=== PATIENT | male | born 1970 | race Caucasian/White ===

== ENCOUNTER 2024-04-20 21:09 | Inpatient (IN) | payer OTHER, SELFPAY ==
[2024-04-20] VITALS (7 sets, daily range): BP systolic 109–146; BP diastolic 82–101; BMI 30.5
[2024-04-20 17:54] LABS: % Basophils 0.5 % (0-2); % Eosinophils 1.3 % (0-6); % Immature Granulocytes 0.3 % (0-0.5); % Lymphocytes 21.3 % (20.5-51.1); % Monocytes 9.2 % (1.7-9.3); % Neutrophils 67.4 % (42.2-75.2); Absolute Eosinophils 0.1 10^3/uL (0-0.7); Absolute Lymphocytes 1.6 10^3/uL (1.2-3.4); Absolute Monocytes 0.7 10^3/uL (0.1-0.6); Hematocrit 40.2 % (39.0-52.0); Hemoglobin 14.5 g/dL (13.0-18.0); Mean Corp Hgb Conc. 36.1 g/dL (33.0-37.0); Mean Corpuscular Hgb 34.4 pg (27.0-31.0); Mean Corpuscular Volume 95.5 fL (80.0-94.0); Mean Platelet Volume 10.2 fL (7.4-10.4); Nucleated Red Blood Cells % 0 % (-); Platelet Count 199 10^3/uL (130-400); Red Blood Cell Count 4.21 10^6/uL (4.70-6.10); Red Cell Dist. Width 13.1 % (11.5-14.5); White Blood Cell Count 7.4 10^3/uL (4.8-10.8)
[2024-04-20 18:09] LABS: ALT (SGPT) 80 U/L (0-50); AST (SGOT) 98 U/L (17-59); Albumin 4.4 g/dl (3.5-5.0); Alkaline Phosphatase 71 U/L (38-126); Blood Urea Nitrogen 19 mg/dl (9-20); Calcium 9.6 mg/dl (8.4-10.2); Carbon Dioxide 21 mmol/L (22-30); Chloride 104 mmol/L (98-107); Glucose 121 mg/dl (70-99); Potassium 3.9 mmol/L (3.5-5.1); Sodium 137 mmol/L (135-145); Total Bilirubin 3.4 mg/dl (0.2-1.3); Total Protein 6.8 g/dl (6.3-8.2); eGFR > 60.00
[2024-04-20 18:13] LABS: NT-proBNP 4210 pg/ml
--- NOTE | 2024-04-20 18:13 | ED.GENMED ---
History of Present Illness
General
Chief Complaint: Breathing Problem
Source: patient
Exam Limitations: none
Time Seen by Provider: 04/20/24 17:57
History of Present Illness
History of Present Illness:
This is a 53 year old male that comes in with c/o irregular heart rate. States that 3 weeks ago he started with some ankle and feet swelling. States that this did not go away. Then he started with SOB about 1.5 weeks ago. States that this went away
and then came back. States that he went to see the PCP today as he felt he couldn't wait till next Friday and he was found to have irregular heart beat. States that he was sent to the ER. Denies any fever, chills, chest pain, abd pain, nausea,
vomiting, diarrhea, headache, dizziness, urinary burning.
Past History
Past History
ED Past Medical History: HTN and Hypercholesterolemia
ED Past Surgical History: Orthopedic (Right arm surgery)
Social History
Tobacco: Non-smoker
Alcohol: Other (5-6 days a week Wine or Vodka 3 glasses)
Personal: Other ()
Living: alone
Employment: Employed
Review of Systems
Review of Systems
All Other Systems: ROS reviewed and negative except as documented in HPI and ROS
Constitutional: Reports no symptoms; Denies fever or chills
EENT: Reports no symptoms
Respiratory: Reports trouble breathing; Denies cough
Cardiac: Denies chest pain
ABD/GI: Reports no symptoms; Denies abdominal pain, nausea, vomiting or diarrhea
: Reports no symptoms; Denies dysuria, frequency or urgency
Musculoskeletal: Reports no symptoms
Skin: Reports no symptoms
Neurological: Reports no symptoms; Denies dizzy or headache
Psychiatric: Reports no symptoms
Phy Exam
General Physical Exam
General Presentation: no apparent distress
General age: appears stated age
General Skin: warm and dry
General Habitus: normal
General Mental: alert
General Hydration: appears well hydrated
ENT Exam
ENT Exam: TM's normal, pharynx normal and neck supple
Eye Exam
Eye Exam: EOMI
Cardiovascular Exam
Cardiovascular Exam: normal peripheral pulses and irregularly irregular
Pulmonary Exam
Pulmonary Exam: lungs clear, no respiratory distress, no rales, chest non tender, no crackles, no rhonchi, no wheezing and no cough
Gastrointestinal Exam
Gastrointestinal Exam: normal bowel sounds, non tender, soft, no organomegaly, no pulsatile mass and non distended
Musculoskeletal Exam
Musculoskeletal Exam: full ROM and edema (+2 pitting edema of ankles and lower legs)
Skin Exam
Skin Exam: normal color, warm/dry, no rash and no petechia
Psychiatric Exam
Psychiatric Exam: normal mood/affect
Scores
[id number] Score for Afib Stroke Risk
Age in Years (65=0, 65-74=1, >/=75=2): <65
Sex (Female=+1): Male
Congestive Heart Failure History (Yes=+1): No
Hypertension History (Yes=+1): Yes
Stroke/TIA/Thromboembolism History (Yes=+2): No
Vascular Disease History (Yes=+1): No
Diabetes Mellitus (Yes=+1): No
Score: 1
Anticoagulation Recommendations: Consider anticoagulation (as validated in nonvalvular fib)
Heart Failure Risk
Heart Failure Risk Score: Yes
History of Stroke or TIA: No
History of intubation for respiratory distress: No
Heart rate on ED arrival >/= 110: No
SaO2 <90% on arrival on room air: No
HR >/=110 during 3min walk test (or too ill to perform test): No
ECG has acute ischemic changes: No
Urea >/=12mmol/L (BUN 33.6mg/dL): No
Serum CO2>/=35mmol/L: No
Troponin I or T elevated to KS Level (0.4mg/dL): No
NT-proBNP >/=5,000ng/L (5,000pg/ml): No
HF Risk Score: 0
Admission Status: LOW RISK 2.8% Consider discharge to home with f/u visit to PCP/Mri Manager
Course
Orders/Labs/Results
Orders:
Orders
04/20/24 Dinner
Cholesterol Lowering
At Your Request: Full Participation
Cholesterol Lowering: Sodium, 2 Gram
04/20/24 17:38
EKG [Electrocardiogram (*1)] Urgent
Reason for Study: Shortness of Breath
EKG- Treatment ONCE
04/20/24 17:42
BNP [NT-proBNP] Urgent
CBC/With Diff [Complete Blood Count/With Diff] Urgent
CMP [Comprehensive Metabolic Panel] Urgent
TSH Reflex To Free T4 Routine
04/20/24 18:07
0.9% Sodium Chloride 1000 ml [Nss] 1,000 ml IV BOLUS
Diltiazem 125 mg/125 ml Nss [Cardizem] 125 mg in 125 ml IV NOW
Initial dose in mg/hr, then titrate:: 5
Titrate to keep:: Heart rate 80-100 bpm
Titrate by mg/hr:: 5 mg/hr
Frequency of titrations (minutes):: 15
Maximum dose in mg/hr:: 15
Diltiazem HCl [Cardizem] 5 mg IV NOW STA
04/20/24 18:08
CR Chest - 2 Views Urgent
Comment:
Reason For Exam: SOB
04/20/24 18:16
Apixaban [Eliquis] 5 mg PO NOW STA
04/20/24 18:25
Troponin I Urgent
04/20/24 19:59
Admit/Transfer Patient As Directed
Co-Sign Provider:
Level of Care: Inpatient admission
Assign to:: IVU
Physician / Group: jessica
Diagnosis: afib with rvr
Reason for Hospitalization: afib with rvr
Expected length of stay greater than two midnights?: Yes
ELOS- Estimated Length of Stay in days: 2
I certify the patient meets the requirements for IP care: Yes
04/20/24 20:00
Code Status As Directed
Resuscitation Status: Full Code
04/20/24 21:00
Flush (0.9% Sodium Chloride) [Flush (Nss)] See Dose Instructions IV PER PROTOCOL
04/20/24 21:37
Echo 2D MMode Color/Doppler Routine
Reason for Study: heart failure
VTE Contraindication Routine
VTE Mechanical Device Contraindication: Medical Contraindication
Pharmocologic Contraindication: Medical Contraindication
Activity As Directed
Activity Level: As Tolerated
Intake/ Output As Directed
Frequency: q12h
Patient Education As Directed
Type: CHF folder
Comment: give on admission. Document in Interdisciplinary Education record
Sleep Apnea Assessment by RN As Directed
Comment:
Physician Instructions:
Vital Signs As Directed
Frequency: Other
Additional Instructions:: Q12 or per unit guidelines if more frequent.
Weight As Directed
Frequency: Daily
Type of Scale: Standing Scale
Comment: Daily morning weight. If unable to stand, use balanced bed scale.
Weight As Directed
Frequency: Once
Type of Scale: Standing Scale
Comment: Upon Admission. If unable to stand, use balanced bed scale.
Pulse Ox/cont/shift [RESP] Routine
Quantity: 1
Special Instructions: Daily pulse oximetry at rest. If greater than 92% at rest also obtain pulse oximetry
while ambulating as tolerated.
04/21/24 Breakfast
NPO
Allow oral meds: Yes
Allow clear liquids: Sips of Clears
Complete Blood Count/With Diff IN AM
Comprehensive Metabolic Panel IN AM
04/21/24 08:00
Apixaban [Eliquis] 5 mg PO BID
Furosemide [Lasix] 40 mg IV DAILY
Ramipril [Altace] 5 mg PO DAILY
04/23/24 11:00
DC Protocol for Telemetry ONCE
Abnormal Lab Results
04/20/24
17:42
RBC 4.21 L 10^6/uL
(4.70-6.10)
MCV 95.5 H fL
(80.0-94.0)
MCH 34.4 H pg
(27.0-31.0)
Absolute Monos (auto) 0.7 H 10^3/uL
(0.1-0.6)
Carbon Dioxide 21 L mmol/L
(22-30)
Glucose 121 H mg/dl
(70-99)
Total Bilirubin 3.4 H mg/dl
(0.2-1.3)
AST 98 H U/L
(17-59)
ALT 80 H U/L
(0-50)
04/20/24 17:42
04/20/24 17:42
Anemia, Glucose nonfasting, Total [place] elevation. AST/ALT elevation. Pro-BNP 4210, Troponin 0.021. TSH 2.14
Vital Signs
Initial and Last Documented VS:
Initial Vital Signs
Temp Pulse Resp BP Pulse Ox
98.3 F 70 20 146/101 98
04/20/24 17:34 04/20/24 17:34 04/20/24 17:34 04/20/24 17:34 04/20/24 17:34
Last Documented Vital Signs
Temp Pulse Resp BP Pulse Ox
98.2 F 91 16 120/82 97
04/20/24 23:33 04/20/24 23:33 04/20/24 23:33 04/20/24 23:33 04/20/24 23:33
MDM/Problems Addressed
Differential Diagnosis Includes:
Atrial fib,
MDM/Problems Addressed:
This is a 53 year old male that went to see his PCP today for swelling in the lower legs and SOB. States that the swelling started 3 weeks ago and the SOB 1.5 weeks ago. He was found to be in atrial fib on his ECG and sent to the ER.
Will get labs, ECG and start IV fluids and Cardizem. Will admit patient. ChadVasc score is 1 so will start Eliquis.
Chronic conditions affecting care:
NA
Acute Exacerbation and/or Progression of Chronic Illness:
NA
*Radiology
Radiology exam reviewed: preliminary read by ED provider (Chest- Negative for active disease. ) and radiology read reviewed (Chest-No acute cardiopulmonary process)
*Pulse Oximetry
Patient hypoxic: no
*EKG
Interpreted by ED Provider?: Yes
Heart Rate: 150
Rate: tachycardiac
Rhythm: a-fib
Zurich: normal axis
QRS Pattern: normal QRS
Ischemia: non-specific ST changes (I, V4, V5, )
*Him Analyst Interpretation
Rate: tachycardiac
Interpretation: abnormal
Heart Rate: 164
Rhythm: a-fib
*Critical Care Note
Total Time (30-74mins, 75-104mins- exclusive of procedures): Not Applicable
ED Attending Note
-
Portions of this chart may have been created with voice recognition software.� Occasional wrong word or��sound alike� substitutions may have occurred due to the inherent limitations of voice recognition software.
Discharge Plan
Departure
Patient Disposition: Admit
Date of Disposition: 04/20/24
Time of Disposition: 19:14
Admit to: Telemetry
Presentation/result/management discussed w/ accepting MD/DO: Hospitalist
Patient with high blood pressure during this ER visit?: No
Condition: Good
Covid-19: Not Applicable
Discharge Problem:
New onset a-fib
Interventions
Interventions:
*Risk Screen - Suicide Last Done: 04/20/24 21:40
*General Assessment Last Done: 04/20/24 17:34
*Neglect/Abuse Screening Last Done: 04/20/24 17:34
ED- Fall Risk Assessment Last Done: 04/20/24 17:50
*ED COVID-19 Vaccine History Last Done: 04/20/24 21:41
*Nursing Disposition Last Done: 04/20/24 21:41
ED- Cardiac Assessment Last Done: 04/20/24 17:50
ED- Pulmonary Assessment Last Done: 04/20/24 17:50
Discharge Date and Time
Discharge Date/Time: 04/20/24 21:42
[2024-04-20] MEDS: NSS 1000 IV (18:18)
[2024-04-20] MEDS: CARDIZEM 125 IV (18:18)
[2024-04-20] MEDS: CARDIZEM 5 MG IV (18:18)
[2024-04-20] MEDS: ELIQUIS 5 MG PO (18:27)
[2024-04-20 18:55] LABS: Troponin I 0.021 ng/ml
--- NOTE | 2024-04-20 20:03 | HPS.HSE ---
Family Physician
-
Family Physician: Nilo Sagastume
Chief Complaint
-
shortness of breath
History of Present Illness
53-year-old male past medical history of hypertension, hypercholesteremia, presenting with irregular heart rate. he noticed that he was having shortness of breath particularly with exertion over the past few weeks and increased lower extremity
edema. He has also gained 20 pounds in the past month. He went to see his primary care physician today and was found to have irregular heartbeat and sent to the emergency room. He denies any palpitations, dizziness, syncope, fevers or chills,
chest pain, abdominal pain, nausea vomiting, diarrhea, headache, dizziness or urinary symptoms.
He drinks 3 drinks of wine 5 times per week. He denies smoking.
His father had heart attack at age of 44.
Medical History
Past Medical History
Past Medical History: Reports Other (hypertension, hypercholesteremia,)
Past Surgical History: Reports None
Social History
Tobacco: Non-smoker
Alcohol: Daily
Drug: None
Family History
Family History: Early CAD
Allergies / Home Medications
Allergies reflects when Allergies were last updated in [facility].
Home Medications with original date entered in [facility]
Allergy/Medication List:
Allergies
Allergy/AdvReac Type Severity Reaction Status Date / Time
ciprofloxacin [From Cipro] Allergy Tongue Verified 04/20/24 17:37
Swelling
ciprofloxacin HCl Allergy Tongue Verified 04/20/24 17:37
[From Cipro] Swelling
Penicillins Allergy Unknown Verified 04/20/24 17:37
Home Medications
aspirin 81 mg tablet,delayed release 81 mg PO DAILY 04/20/24
ramipril 5 mg capsule 5 mg PO DAILY 04/20/24
simvastatin 40 mg tablet 40 mg PO DAILY 04/20/24
Review of Systems
-
History Source: Patient
A 12 point ROS was completed and negative except as noted: Yes
Constitutional: Reports No Symptoms
EENT: Reports No Symptoms
Respiratory: Reports See HPI
Cardiac: Reports See HPI
Abdomen/GI: Reports No Symptoms
: Reports No Symptoms
Musculoskeletal: Reports No Symptoms
Skin: Reports No Symptoms
Neurological: Reports No Symptoms
Endocrine: Reports No Symptoms
Hematologic/Lymphatic: Reports No Symptoms
Psych: Reports No Symptoms
Physical Exam
Vital Signs
Vital Signs
Temp Pulse Resp BP Pulse Ox
98.3 F 127 23 117/82 95
04/20/24 17:34 04/20/24 19:38 04/20/24 19:38 04/20/24 19:38 04/20/24 19:38
Physical Exam
General: Well Developed, Well Nourished and No Apparent Distress
HEENT: NormoCephalic, Moist mucous membranes and Atraumatic
Respiratory: Clear
Cardiac: S1/S2, Irregular Rhythm, Tachycardia and Peripheral Edema; No Murmur or Rub
GI: Soft, Non Tender, Non Distended and Normal Bowel Sounds; No Organomegaly
Rectal: Deferred by Provider
Musculoskeletal: No Clubbing, No Cyanosis and No Edema
Skin: No Rash
Neuro: Nonfocal/grossly intact
Laboratory Results
-
04/20/24 17:42
04/20/24 17:42
Laboratory Results
Total Bilirubin 3.4 mg/dl (0.2-1.3) H 04/20/24 17:42
AST 98 U/L (17-59) H 04/20/24 17:42
ALT 80 U/L (0-50) H 04/20/24 17:42
Alkaline Phosphatase 71 U/L (38-126) 04/20/24 17:42
Troponin I 0.021 ng/ml 04/20/24 18:25
Data Reviewed
-
Lab Data: Labs Reviewed by me
Old Records: Reviewed
Impression/Plan
-
IMPRESSION:
PLAN:
# New onset atrial fibrillation with RVR
-IV fluids given
-Cardizem drip started
-Eliquis started, discontinue aspirin
-Check TSH
-Cardiology consulted
-Assess for sleep apnea
-N.p.o. past midnight in case cardioversion necessary
# Tachycardia induced CHF exacerbation
-Cardiac BNP of 4000
-Chest x-ray shows no overt pulmonary vascular congestion
-Check I's and O's, daily weights
-Will give dose of 40 IV Lasix daily
-Check echo
# Transaminitis secondary to hepatic venous congestion/alcohol use
-Continue to monitor
-Hold statin
# Significant weekly alcohol use
-Monitor for withdrawal
Essential hypertension
-Continue ramipril
Hypercholesterolemia
-Continue statin
Full code
DVT prophylaxis�Eliquis
Cardiac diet, n.p.o. past midnight
[2024-04-20 22:55] LABS: TSH Reflex To Free T4 2.14 uIU/ml (0.47-4.68)
[2024-04-21] VITALS (8 sets, daily range): BP systolic 90–128; BP diastolic 61–94; BMI 29.4
--- NOTE | 2024-04-21 00:37 | PTCARENOTE ---
Pt admitted to IVU ~2129, pt belongings w/ pt. Oriented pt to unit. HR afib w/ PVCs 80s-100s. Cardizem infusing at 15mg/hr. Hand tremors noted - pt states it has been happening on and off for 'a while' and 'could also be from nerves'. Afib booklet
given to pt, informed of NPO status starting 0000. Pt states SOB is better than when initially arriving to ED. Informed to notify RN if any worsening SOB or lightheadedness/dizziness - call munguia within reach.
[2024-04-21] MEDS: CARDIZEM 125 IV ×2 (03:03→20:39)
[2024-04-21 03:49] LABS: % Basophils 0.5 % (0-2); % Eosinophils 2.2 % (0-6); % Immature Granulocytes 0.3 % (0-0.5); % Monocytes 8.8 % (1.7-9.3); % Neutrophils 57.2 % (42.2-75.2); Absolute Eosinophils 0.1 10^3/uL (0-0.7); Absolute Lymphocytes 1.8 10^3/uL (1.2-3.4); Absolute Monocytes 0.5 10^3/uL (0.1-0.6); Absolute Neutrophils 3.4 10^3/uL (1.4-6.5); Hematocrit 38.6 % (39.0-52.0); Hemoglobin 13.7 g/dL (13.0-18.0); Mean Corp Hgb Conc. 35.5 g/dL (33.0-37.0); Mean Corpuscular Hgb 34.6 pg (27.0-31.0); Mean Corpuscular Volume 97.5 fL (80.0-94.0); Mean Platelet Volume 10.6 fL (7.4-10.4); Nucleated Red Blood Cells % 0 % (-); Platelet Count 165 10^3/uL (130-400); Red Blood Cell Count 3.96 10^6/uL (4.70-6.10); Red Cell Dist. Width 12.9 % (11.5-14.5); White Blood Cell Count 5.9 10^3/uL (4.8-10.8)
[2024-04-21 04:09] LABS: ALT (SGPT) 70 U/L (0-50); AST (SGOT) 78 U/L (17-59); Albumin 3.9 g/dl (3.5-5.0); Alkaline Phosphatase 71 U/L (38-126); Blood Urea Nitrogen 20 mg/dl (9-20); Calcium 9.1 mg/dl (8.4-10.2); Carbon Dioxide 21 mmol/L (22-30); Chloride 103 mmol/L (98-107); Estimated Creatinine Clearance 85 ml/min; Glucose 155 mg/dl (70-99); Potassium 3.9 mmol/L (3.5-5.1); Sodium 135 mmol/L (135-145); Total Bilirubin 3.6 mg/dl (0.2-1.3); Total Protein 6.3 g/dl (6.3-8.2); eGFR > 60.00
--- NOTE | 2024-04-21 06:36 | W.PN.HOSP.TC ---
Today's Communication/Plan
-
NPO pending cardiology evaluation
IV Cardizem gtt
IV Lasix
Echo
Mg supplement
Assessment / Plan
Assessment / Plan
Physical Exam
General: Well Developed, Well Nourished and No Apparent Distress
HEENT: Normocephalic, Moist mucous membranes and Atraumatic
Respiratory: Clear
Cardiac: S1/S2, Irregular Rhythm,
GI: Soft, Non Tender, Non Distended and Normal Bowel Sounds; No Organomegaly
Rectal: No rectal bleeding
Musculoskeletal: No Clubbing, No Cyanosis and No Edema
Skin: No Rash
Neuro: Nonfocal/grossly intact
Psych: calm.
# New onset atrial fibrillation with RVR
-IV fluids given
-Cardizem drip started
-Eliquis was , discontinued aspirin. Low [id number] 1 for HTN
- Normal TSH
-Assess for sleep apnea as OP
-N.p.o. past midnight in case cardioversion necessary
Appreciate cardiology input
# Tachycardia induced CHF exacerbation
-Cardiac BNP of 4000
-Chest x-ray shows no overt pulmonary vascular congestion
-Check I's and O's, daily weights
-40 IV Lasix daily
-Check echo
# Hypomagnesemia
Replace
# Transaminitis secondary to hepatic venous congestion/alcohol use
Enzymes are coming down.
- No abdominal pain. No N/V.
-Hold statin
# Significant weekly alcohol use
-Monitor for withdrawal, no signs now
#Essential hypertension
AM BP 126/79
-Continue ramipril
#Hypercholesterolemia
-
Full code
DVT prophylaxis�Eliquis
Cardiac diet, n.p.o. past midnight
Total time spent to see the patient on the floor, examine the patient, review data and lab results, discuss treatment plan with patient, nursing staff around 55 minutes
Anticipated Discharge: 24 - 48 hours
Subjective/Interval History
-
Date of Service: April 21, 2024
No chest pain
NO SOB
Objective Data
-
Labs:
Laboratory Results
04/21/24
03:08
WBC 5.9
Hgb 13.7
Hct 38.6 L
Plt Count 165
Sodium 135
Potassium 3.9
Chloride 103
Carbon Dioxide 21 L
BUN 20
Creatinine 1.2
Glucose 155 H
Calcium 9.1
Total Bilirubin 3.6 H
AST 78 H
ALT 70 H
Alkaline Phosphatase 71
Vital Signs:
Vital Signs
Temp Pulse Resp BP Pulse Ox
98 F 85 18 114/77 97
04/21/24 02:55 04/21/24 03:00 04/21/24 02:55 04/21/24 02:55 04/21/24 02:55
I&O
04/19/24 04/20/24 04/21/24
06:59 06:59 06:59
Intake Total 480 / 480
Balance 480 / 480
[2024-04-21 06:48] LABS: Magnesium 1.7 mg/dl (1.6-2.3)
[2024-04-21] MEDS: ELIQUIS 5 MG PO (08:41)
[2024-04-21] MEDS: LASIX 40 MG IV ×2 (08:42→15:23)
[2024-04-21] MEDS: ALTACE 5 MG PO (08:42)
--- NOTE | 2024-04-21 08:58 | CON.CAR ---
Addendum entered and electronically signed by Bakari Zhang MD 04/21/24 12:45:
I saw and examined the patient.
The ADJUSTER AND INSPECTOR's note was reviewed and I agree with the note.
Comment: 53 y/o male with hypertension and dyslipidemia who is here for evaluation of one month of LE edema, 20 lb weight gain, and several weeks of FRANKLIN. He was found to have new HF, AF RVR, and mild to moderately reduced EF.
- Cath tomorrow NPO after midnight
- IV diuresis
- Rate control possible FRANSISCA DCCV Friday
- GDMT initiation
Original Note:
Consultation
Consultation Request
Date/Time Consultation Requested: 04/19/24 2200
Date/Time Consultation Performed: 04/20/24 0900
Requesting Provider: Dr. Walters
Performing Provider: Steffany PATTON for Dr. Zhang
Reason for Consultation: AFIB
Medical History
-
Chief Complaint: SOB and edema
History of Present Illness:
53 y/o male with hypertension and dyslipidemia who is here for evaluation of one month of LE edema, 20 lb weight gain, and several weeks of FRANKLIN. He saw his PCP who determined that he was in AFIB and sent him to the ER. HR was in 150's, but he is now
on a diltiazem drip with rates-controlled. He has been given a dose of IV Lasix (this AM). Additionally, he was started on Eliquis for OAC. He is in no distress at the time of my assessment.
Past Medical History
Past Medical History: HTN and Hypercholesterolemia
Social History
Tobacco: Non-Smoker
Alcohol: Other (2-3 glasses of wine or vodka drinks about 5 days per week)
Employment: Employed
Family History
Family History: Early CAD (dad suspected [place] age 44 )
Allergies / Home Medications
Allergy/AdvReac Type Severity Reaction Status Date / Time
ciprofloxacin [From Cipro] Allergy Tongue Verified 04/20/24 17:37
Swelling
ciprofloxacin HCl Allergy Tongue Verified 04/20/24 17:37
[From Cipro] Swelling
Penicillins Allergy Unknown Verified 04/20/24 17:37
�Medication �Instructions �Recorded �Confirmed �Type
aspirin 81 mg tablet,delayed 81 mg PO DAILY 04/20/24 04/20/24 History
release
ramipril 5 mg capsule 5 mg PO DAILY 04/20/24 04/20/24 History
simvastatin 40 mg tablet 40 mg PO DAILY 04/20/24 04/20/24 History
Review of Systems
-
History Source: Patient
All other systems: Negative unless noted
Respiratory: Trouble Breathing
Musculoskeletal: Edema
Physical Exam
Vital Signs
Temp Pulse Resp BP Pulse Ox
98.3 F 93 20 126/79 99
04/21/24 07:08 04/21/24 08:45 04/21/24 07:08 04/21/24 08:42 04/21/24 07:08
Lab Results
04/21/24 03:08
04/21/24 03:08
Troponin I 0.021 ng/ml 04/20/24 18:25
Hje-C-Xweirolrdan Pept 4210 pg/ml 04/20/24 17:42
Physical Exam
General: Well Developed, Well Nourished and No Apparent Distress
HEENT: Normocephalic and Anicteric
Respiratory: Clear and Non Labored Respirations
Cardiac: Irregular Rhythm and Peripheral Edema (mild BLE edema)
GI: Other (abdominal bloating)
Musculoskeletal: Edema
Skin: Warm and Dry
Neuro: AO x 3
Psych: Calm
Impression / Plan
-
AFib with RVR: type/onset unknown
-rate-controlled with IV diltiazem- will transition to PO meds based on echo
-Eliquis initiated for his [id number] score of 2 for HTN, CHF. Denies any bleeding issues or falls.
-he thinks he has sleep apnea, but has never been tested. Reviewed untreated sleep apnea in AFIB- recommend OP eval.
-we discussed ETOH intake- safest and best practice is no ETOH, but if does not quit should limit to 1 drink- reviewed with patient
-TSH normal
-echo is pending - await results
-FRANSISCA/CV this admit
CHF, acute, type unknown:
-weight gain, edema, SOB, elevated BNP
-agree with IV diuresis and monitor response- requires intensive monitoring
-echo pending
HTN:
-on ACEI
-monitor with med adjustments
HLD:
-on statin
Data Reviewed
-
EKG: Tracing Personally Visualized and interpreted (AFIB with RVR 150 BPM, NS ST/T abnormalities)
Radiology: Report Reviewed by me (No acute cardiopulmonary process.)
Medical Tests (Nuc Med, Echo etc): Report Reviewed by me (Echo 01/03/2016: Normal left ventricular size, wall thickness and systolic function. No regional wall motion abnormalities are seen. Left ventricular ejection fraction is 55- 60%. No
significant valvular disease. )
Labs: Labs Reviewed by me
--- NOTE | 2024-04-21 09:19 | PTCARENOTE ---
bedside echo being done.
[2024-04-21] MEDS: ALDACTONE 25 MG PO (11:22)
[2024-04-21] MEDS: LOW STRENGTH ASPIRIN 324 MG PO (11:22)
--- NOTE | 2024-04-21 12:36 | CM ---
Reviewed chart. Met with Mr Fuller to review discharge plans. He states prior to admission he resides alone in a two story townhouse with two steps to enter. He states he has a full flight of steps to get to bedroom/full bathroom. He states he
has a powder room on the first floor. He states prior to admission he was independent with ambulation and adls. He states he has a prescription plan and uses [facility]. Telephone call to [employer], ([phone]) to check on co-pays for
Eliquis 5 mg po bid,, Farxiga 10 mg po daily and Entresto 24/26 mg bid. His co-pay for Eliquis is $35.00 a month, Farxiga is $35.00 a month and Entresto is $35.00 a month. He can use the $10.00 co-pay for Eliquis and Entresto and the free coupon
for Farxiga. Placed the coupons in his red discharge folder. Medical work-up in progress. The discharge plan is to return home when medically stable.
--- NOTE | 2024-04-21 12:41 | PTCARENOTE ---
remains in afib on cardizem gtt @ 5mg. HR controlled at 80s. +2-3 pitting lower extremity edema. IV lasix given. will continue ot monitor. for cardiac cath in am. and possible rhdoa cardioversion friday.
[2024-04-21] MEDS: MAGNESIUM OXIDE 500 MG PO (19:28)
--- NOTE | 2024-04-21 19:50 | W.PN.UPDATE ---
Update Note
Progress Note Update
Patient stated that he drinks 3 drinks of wine 5 times per week on admission. Today patient shows alcohol withdrawal symptoms, has tremors, very anxious, and restless. msas protocol initiated.
[2024-04-21] MEDS: ATIVAN 1 MG IV (20:09)
[2024-04-21] MEDS: THIAMINE INJECTION 200 MG IV (20:19)
[2024-04-21 20:48] LABS: Magnesium 1.6 mg/dl (1.6-2.3); Phosphorus 3.9 mg/dl (2.5-4.5)
[2024-04-21 20:49] LABS: Alcohol None Detected
--- NOTE | 2024-04-21 21:32 | PTCARENOTE ---
pt with tremors and reported feeling anxious and restless- - reported to tour counselor- in light of daily etoh consumption tour counselor placed on msas- msas score 7- ativan given
[2024-04-21] MEDS: ATIVAN 1 MG PO (22:15)
--- NOTE | 2024-04-21 22:24 | PTCARENOTE ---
afib controlled with iv cardizem- currently on 5/hr- bp wnl afebrile- plan of care discussed- w3ill be npo at midnight for cath in am
[2024-04-22] VITALS (17 sets, daily range): BP systolic 100–139; BP diastolic 62–123; BMI 28.7
--- NOTE | 2024-04-22 02:03 | SUR.PHASEI ---
hr 60's to 70's while pt asleep - cardizem gtt decreased to 2.5/hr
[2024-04-22 04:04] LABS: Hematocrit 36.8 % (39.0-52.0); Mean Corp Hgb Conc. 35.3 g/dL (33.0-37.0); Mean Corpuscular Hgb 34.2 pg (27.0-31.0); Mean Corpuscular Volume 96.8 fL (80.0-94.0); Platelet Count 145 10^3/uL (130-400); Red Cell Dist. Width 13.1 % (11.5-14.5); White Blood Cell Count 4.9 10^3/uL (4.8-10.8)
[2024-04-22 04:30] LABS: Blood Urea Nitrogen 21 mg/dl (9-20); Carbon Dioxide 24 mmol/L (22-30); Chloride 104 mmol/L (98-107); Estimated Creatinine Clearance 83 ml/min; Glucose 105 mg/dl (70-99); HDL Cholesterol 51 mg/dl; LDL Cholesterol, Calculated 70 mg/dl; Potassium 3.3 mmol/L (3.5-5.1); Sodium 136 mmol/L (135-145); Total Cholesterol 139 mg/dl (50-199); Triglyceride 92 mg/dl (10-149); Very Low Density Lipoprotein 18 mg/dl (0-30); eGFR > 60.00
--- NOTE | 2024-04-22 04:50 | PTCARENOTE ---
metallurgical tester ordered k rider for k of 3.3 see mar
[2024-04-22] MEDS: KCL 270 MEQ IV (05:05)
--- NOTE | 2024-04-22 06:44 | W.PN.HOSP.TC ---
Addendum entered and electronically signed by Maximilian Brantley MD 04/22/24 09:21:
Addendum
Hypokalemia, replace
Recheck in AM with magnesium in am
End
Original Note:
Today's Communication/Plan
-
No active signs of alcohol withdrawal
c/w Diuretic therapy
NPO for cath today
On Cardizem gtt
Assessment / Plan
Assessment / Plan
Physical Exam
General: Well Developed, Well Nourished and No Apparent Distress
HEENT: Normocephalic, Moist mucous membranes and Atraumatic
Respiratory: Clear
Cardiac: S1/S2, Irregular Rhythm,
GI: Soft, Non Tender, Non Distended and Normal Bowel Sounds; No Organomegaly
Rectal: No rectal bleeding
Musculoskeletal: No Clubbing, No Cyanosis and No Edema
Skin: No Rash
Neuro: Nonfocal/grossly intact
Psych: calm.
# Newly diagnosed acute systolic heart failure
Echo showed new findings of LVEF 40%, global diffuse hypokinesis, Mild to moderate MR, Mild to Moderate TR.
plan for cardiac catheterization to rule out/ treat obstructive CAD
c/w Lasix.
Started on Aldactone, Farxiga.
# New onset atrial fibrillation with RVR
-IV fluids given
-Cardizem drip started
-Eliquis was , discontinued aspirin. Low [id number] 1 for HTN
- Normal TSH
-Assess for sleep apnea as OP
-N.p.o. past midnight for cath.
Appreciate cardiology input
# Hypomagnesemia
Remains low at 1.6
c/w Magnesium oxide.
# Transaminitis secondary to hepatic venous congestion/alcohol use
Enzymes are coming down.
- No abdominal pain. No N/V.
-Held statin
# Significant weekly alcohol use
-Monitor for withdrawal, no signs now
#Essential hypertension
No headache
- Stopped ramipril, now on diuretics & Cardizem gtt.
#Hypercholesterolemia
Full code
DVT prophylaxis�Eliquis
Cardiac diet, n.p.o. past midnight
Total time spent to see the patient on the floor, examine the patient, review data and lab results, discuss treatment plan with patient, nursing staff around 55 minutes
Anticipated Discharge: > 48 hours
Subjective/Interval History
-
Date of Service: April 22, 2024
No chest pain or sob
\\Denies tremor, anxiety
Objective Data
-
Labs:
Laboratory Results
04/22/24
03:41
WBC 4.9
Hgb 13.0
Hct 36.8 L
Plt Count 145
Sodium 136
Potassium 3.3 L
Chloride 104
Carbon Dioxide 24
BUN 21 H
Creatinine 1.1
Glucose 105 H
Calcium 9.0
Vital Signs:
Vital Signs
Temp Pulse Resp BP Pulse Ox
98.1 F 77 18 100/85 98
04/22/24 04:28 04/22/24 06:00 04/21/24 19:40 04/22/24 04:27 04/21/24 22:01
I&O
04/20/24 04/21/24 04/22/24
06:59 06:59 06:59
Intake Total 480 / 480
Balance 480 / 480
[2024-04-22] MEDS: MAGNESIUM OXIDE 500 MG PO ×2 (08:10→20:21)
[2024-04-22] MEDS: LASIX 40 MG IV (08:11)
[2024-04-22] MEDS: FOLVITE 1 MG PO (08:11)
[2024-04-22] MEDS: FARXIGA 10 MG PO (08:11)
[2024-04-22] MEDS: ALDACTONE 25 MG PO (08:11)
[2024-04-22] MEDS: THIAMINE INJECTION 200 MG IV ×2 (08:12→20:21)
[2024-04-22] MEDS: LOW STRENGTH ASPIRIN 81 MG PO (08:12)
[2024-04-22 08:41] LABS: Glycohemoglobin (HgbA1c) 5.5 % (4.0-5.6)
--- NOTE | 2024-04-22 09:11 | PTCARENOTE ---
Assumed care of pt from night RN. Pt received awake and alert, Ox3. VSS, CM shows AF 90's, POX 96% on RA. Cardizem drip infusing through left wrist at 2.5 mg/hr. Pt remains NPO for CC today. He denies any pain or discomfort at this time, will
continue to monitor closely.
--- NOTE | 2024-04-22 10:14 | PN.CDI ---
CDI
- -
CDI:
Physician Documentation Request
Admit Date: 04/20/24 21:09
Dear Doctor Fercho,
Clinical Indicators:
Patient admitted with new onset atrial fibrillation with RVR.
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 msas protocol initiated.'
04/21 MSAS scores: 5-7
04/21 Ativan 1mg IV x 2 doses.
04/22 PN, 'Significant weekly alcohol use-Monitor for withdrawal, no signs now'
Based on the above, could you clarify in the progress notes, the appropriate diagnosis, if significant, that supports the above abnormalities and additional evaluation, monitoring and/or treatment rendered:
Alcohol use with withdrawal, resolved
Alcohol use only, without withdrawal
Other, please specify
Use of terms such as suspected, likely, concern for, or probable (associated with a specific diagnosis that is being evaluated, monitored, or treated as if it exists) are acceptable and can be coded in the inpatient setting, when documented at the
time of discharge.
Thank you,
KELVIN Luciano RN
CDI Specialist
available via tiger text
Please use your independent medical judgment in providing your response.
--- NOTE | 2024-04-22 10:57 | PTCARENOTE ---
Assumed care of pt upon tsf from CCL post cath. Pt arrives in room awake and Ox3, VSs, CM shows Af90's, POX 96% on RA. Right radial band intact with normal CMS. Pt denies any pain or discomfort at this time. Will continue to manage band as
directed.
[2024-04-22] MEDS: NSS 1000 IV (11:07)
--- NOTE | 2024-04-22 11:16 | ITS.CL.CATH ---
[facility] [employer] - Catheterization
Cardiac Catheterization
Procedure Report:
CARDIAC CATHETERIZATION REPORT
Date of Procedure: 04/22/2024
Referring: Bakari Zhang MD
Indication: Recent onset CHF with left ventricular dysfunction and new A-fib
HEMODYNAMIC DATA
AO: 107/79
LV: 107/26
LEFT VENTRICULOGRAPHY: Mild LVE with severe global hypokinesis with EF 21%. There is 2+ mitral regurgitation
CORONARY ANGIOGRAPHY
Dominance: Right
Left Main: Normal
LAD: Trivial luminal irregularities
Circumflex: Normal
RCA: Normal dominant vessel
Closure Device: None-the procedure was performed via the right radial artery. The Santiago's test was normal prior to the procedure.
Radiation (mGy): 222
DAP (cm2.Gy): 15.9
Fluoroscopy time: 1.8 minutes
CONCLUSIONS
1: Elevated LVEDP
2: Severe global hypokinesis with EF 21%
3. Mild to moderate mitral regurgitation
4. No significant CAD
5. This patient has a nonischemic cardiomyopathy. This could be rate related cardiomyopathy due to recent onset AF/RVR, ethanol related cardiomyopathy, or idiopathic cardiomyopathy. Recommend continued guideline directed medical therapy and we
will arrange FRANSISCA guided cardioversion hopefully for tomorrow. Eliquis will be resumed this evening.
Copy to: Bakari Zhang MD, Nilo Sagastume DO
Remy Loyd MD, [facility], [facility]
--- NOTE | 2024-04-22 14:59 | PN.CDI ---
Addendum entered and electronically signed by Maximilian Brantley MD 04/22/24 15:01:
Alcohol use only, without withdrawal
Original Note:
CDI
- -
CDI:
Physician Documentation Request
Admit Date: 04/20/24 21:09
Dear Doctor Fercho,
Clinical Indicators:
Patient admitted with new onset atrial fibrillation with RVR.
04/21 STEEL LOADER update note,'Today patient shows alcohol withdrawal symptoms, has tremors, very anxious, and restless. msas protocol initiated.'
04/21 MSAS scores: 5-7
04/21 Ativan 1mg IV x 2 doses.
04/22 PN, 'Significant weekly alcohol use-Monitor for withdrawal, no signs now'
Based on the above, could you clarify in the progress notes, the appropriate diagnosis, if significant, that supports the above abnormalities and additional evaluation, monitoring and/or treatment rendered:
Alcohol use with withdrawal, resolved
Alcohol use only, without withdrawal
Other, please specify
Use of terms such as suspected, likely, concern for, or probable (associated with a specific diagnosis that is being evaluated, monitored, or treated as if it exists) are acceptable and can be coded in the inpatient setting, when documented at the
time of discharge.
Thank you,
KELVIN Luciano RN
CDI Specialist
available via tiger text
Please use your independent medical judgment in providing your response.
--- NOTE | 2024-04-22 20:20 | PTCARENOTE ---
Assumed care of patient at 1900. Patient found in bed a time of assessment. Patient is AOx4, follows commands appropriately, moves all extremities. Lung sounds are clear and equal bilaterally with saO2 at 97% on RA. Heart sounds are irregular,
patient is noted to be in afib on the monitor. Patient has normal palpable pulses and trace edema located in the BLE. Patient has active BS throughout all four quadrants and is continent of B/B. Skin appears grossly intact. There is a L wrist PIV
with cardizem gtt at 10. Patient has no complaints at this time.
[2024-04-22] MEDS: ELIQUIS 5 MG PO (20:23)
[2024-04-22] MEDS: CARDIZEM 125 IV (22:14)
[2024-04-22] MEDS: MELATONIN 5 MG PO (22:14)
[2024-04-23] VITALS (10 sets, daily range): BP systolic 96–148; BP diastolic 76–111; BMI 28.9
--- NOTE | 2024-04-23 | PTCARENOTE ---
Patient reassessed. Cardizem titrated to maintain HR in range 80-100 currently @10. VSS. Patient remains in Afib on the monitor. Patient is stable.
[2024-04-23 05:24] LABS: Hematocrit 39.2 % (39.0-52.0); Hemoglobin 13.7 g/dL (13.0-18.0); Mean Corp Hgb Conc. 34.9 g/dL (33.0-37.0); Mean Corpuscular Hgb 34.6 pg (27.0-31.0); Mean Platelet Volume 10.3 fL (7.4-10.4); Platelet Count 162 10^3/uL (130-400); Red Blood Cell Count 3.96 10^6/uL (4.70-6.10); Red Cell Dist. Width 13.2 % (11.5-14.5); White Blood Cell Count 4.8 10^3/uL (4.8-10.8)
[2024-04-23 05:49] LABS: Blood Urea Nitrogen 18 mg/dl (9-20); Calcium 9.2 mg/dl (8.4-10.2); Carbon Dioxide 22 mmol/L (22-30); Chloride 105 mmol/L (98-107); Estimated Creatinine Clearance 83 ml/min; Glucose 98 mg/dl (70-99); Sodium 137 mmol/L (135-145); eGFR > 60.00
--- NOTE | 2024-04-23 06:48 | W.PN.HOSP.TC ---
Today's Communication/Plan
-
Cardioversion trial today
Assessment / Plan
Assessment / Plan
Physical Exam
General: Well Developed, Well Nourished and No Apparent Distress
HEENT: Normocephalic, Moist mucous membranes and Atraumatic
Respiratory: Clear
Cardiac: S1/S2, Irregular Rhythm,
GI: Soft, Non Tender, Non Distended and Normal Bowel Sounds; No Organomegaly
Rectal: No rectal bleeding
Musculoskeletal: No Clubbing, No Cyanosis and No Edema
Skin: No Rash
Neuro: Nonfocal/grossly intact
Psych: calm.
# Newly diagnosed acute systolic heart failure
Echo showed new findings of LVEF 40%, global diffuse hypokinesis, Mild to moderate MR, Mild to Moderate TR.
Cardiac catheterization, no obstructive CAD. Possible Tachycardia induced CMP or ETOH induced. LFEV 21%
c/w Lasix.
Started on Aldactone, Farxiga.
# New onset atrial fibrillation with RVR
-IV fluids given
-Cardizem drip started
-Eliquis was , discontinued aspirin. Low [id number] 1 for HTN
- Normal TSH
-Assess for sleep apnea as OP
-N.p.o. past midnight for cardioversion
Appreciate cardiology input
# Hypomagnesemia
Remains low at 1.6
c/w Magnesium oxide.
# Transaminitis secondary to hepatic venous congestion/alcohol use
Enzymes are coming down.
- No abdominal pain. No N/V.
-Held statin
# Significant weekly alcohol use
-Monitor for withdrawal, no signs now
#Essential hypertension
No headache
- Stopped ramipril, now on diuretics & Cardizem gtt.
#Hypercholesterolemia
Full code
DVT prophylaxis�Eliquis
Cardiac diet, n.p.o. past midnight
Total time spent to see the patient on the floor, examine the patient, review data and lab results, discuss treatment plan with patient, nursing staff around 55 minutes
Anticipated Discharge: Within 24 hours
Subjective/Interval History
-
Date of Service: April 23, 2024
No chest pain
No abd pain
Objective Data
-
Labs:
Laboratory Results
04/23/24
04:32
WBC 4.8
Hgb 13.7
Hct 39.2
Plt Count 162
Sodium 137
Potassium 4.0
Chloride 105
Carbon Dioxide 22
BUN 18
Creatinine 1.1
Glucose 98
Calcium 9.2
Vital Signs:
Vital Signs
Temp Pulse Resp BP Pulse Ox
97.6 F 82 16 103/76 96
04/23/24 05:12 04/23/24 05:12 04/23/24 05:12 04/23/24 05:12 04/23/24 05:12
I&O
04/21/24 04/22/24 04/23/24
06:59 06:59 06:59
Intake Total 480 / 480 420 / 420
Balance 480 / 480 420 / 420
[2024-04-23] MEDS: LOW STRENGTH ASPIRIN 81 MG PO (07:28)
[2024-04-23] MEDS: ELIQUIS 5 MG PO ×2 (07:28→20:21)
--- NOTE | 2024-04-23 07:35 | PTCARENOTE ---
report given to Rox in CCL.
--- NOTE | 2024-04-23 09:18 | ITS.CL.CARDI ---
Planting Machine Operator - Cardioversion
Cardioversion
Procedure Report:
Date of Procedure:
Procedure: Cardioversion
Indication: Symptomatic atrial fibrillation
Performing Physician: Samuel Denson MD
Technique: The patient was brought to the holding area. Signed informed consent was obtained. A time out was called and performed. The patient was anesthetized by the anesthesia service. Anticoagulation status was reviewed and appropriate. R2 pads
were placed anteriorly and posteriorly. After a transesophageal echo revealed no LA appendage thrombus, A 200 J synchronized biphasic shock restored normal sinus rhythm without significant bradycardia. There were no complications.
Conclusion: Uncomplicated cardioversion from atrial fibrillation to sinus rhythm.
Recommendation: Routine post cardioversion care. Continue skilled nursing anticoagulation.
[2024-04-23] MEDS: ALDACTONE 25 MG PO (10:02)
[2024-04-23] MEDS: LASIX 40 MG IV ×2 (10:02→15:45)
[2024-04-23] MEDS: THIAMINE INJECTION 200 MG IV ×2 (10:02→20:22)
[2024-04-23] MEDS: KCL 20 MEQ PO (10:02)
[2024-04-23] MEDS: MAGNESIUM OXIDE 500 MG PO ×2 (10:09→20:22)
[2024-04-23] MEDS: FARXIGA 10 MG PO (10:09)
[2024-04-23] MEDS: FOLVITE 1 MG PO (10:09)
[2024-04-23] MEDS: TOPROL XL 25 MG PO (10:14)
--- NOTE | 2024-04-23 10:20 | PTCARENOTE ---
received pt from the CCL s/p cardioversion, oriented, walked from stretcher to bed, VSS, sinus rhythm on tele. EKG completed in ccl. morning medications administered. plan of care reviewed w the pt and questions encouraged.
--- NOTE | 2024-04-23 11:59 | CM ---
Reviewed chart. Met with Mr. Fuller to review discharge plans. He states he iis feeling well. He is hoping to go home soon. He states his plan is to return home when medically stable. Prior to admission he resides alone in a two story townhouse with
two steps to enter. He has a full flight of steps to get to bedroom/full bathroom. He has a powder room on the first floor. Prior to admission he was independent with ambulation and adls. He states he has been ambulating to the bathroom
independently here. He has a prescription plan and uses [facility]. Medical work-up in progress. The discharge plan is to return home when medically stable.
--- NOTE | 2024-04-23 14:31 | W.PN.CD ---
Today's Communication / Plan
-
Increase GDMT as tolerate
Extra dose lasix tonight and tomorrow AM IV
Entresto tonight
Hopeful D/c tomorrow
Impression / Plan
-
AFib with RVR: type/onset unknown
-s/p DCCV, started metop 25 XL likely increase to 50 XL tomorrow
-he thinks he has sleep apnea, but has never been tested. Reviewed untreated sleep apnea in AFIB- recommend OP eval.
-we discussed ETOH intake- safest and best practice is no ETOH, but if does not quit should limit to 1 drink- reviewed with patient
-TSH normal
-TTE below, cath no significant CAD
-FRANSISCA/CV this admit
CHF, acute, type unknown:
-GDMT: dapagliflozin 10mg, Metop XL, Entresto tonight, Spironolactone 25 mg
HTN:
- GDMT as above
HLD:
-on statin
Physical Exam
Vital Signs/Labs
Vital Signs
Temp Pulse Resp BP Pulse Ox
97.5 F 99 16 126/97 97
04/23/24 09:50 04/23/24 12:00 04/23/24 09:50 04/23/24 09:53 04/23/24 10:27
04/22/24 04/23/24 04/24/24
06:59 06:59 06:59
Actual Weight 205 lb 11.06 oz 207 lb 7.28 oz
04/23/24 04:32
04/23/24 04:32
Magnesium 2.0 mg/dl (1.6-2.3) 04/23/24 04:32
Triglycerides 92 mg/dl (10-149) 04/22/24 03:41
LDL Cholesterol, Calc 70 mg/dl 04/22/24 03:41
VLDL Cholesterol, Calc 18 mg/dl (0-30) 04/22/24 03:41
HDL Cholesterol 51 mg/dl 04/22/24 03:41
04/20/24
17:42
Kvm-P-Hmjdoyebtfn Pept 4210
LAB Results
04/20/24
18:25
Troponin I 0.021
Physical Exam
Constitutional: No acute distress
EENT: Anicteric
Cardiovascular: Rhythm & rate is regular and Pedal edema present
Respiratory: Respiratory effort normal
GI: Soft
Neuro/Psych: AO x 3
Data Reviewed
-
Date of Service: April 23, 2024
Medical Decision Making: Reviewed Test Results
EKG: Tracing Personally Visualized and interpreted (sr)
Echo: Report Reviewed by me
Labs: Labs Reviewed by me
[2024-04-23] MEDS: ENTRESTO 24 MG/26 MG 1 TAB PO (20:21)
[2024-04-23] MEDS: FLUSH (NSS) 2 FLUSH IV (20:22)
[2024-04-23] MEDS: MELATONIN 5 MG PO (22:55)
--- NOTE | 2024-04-24 03:00 | PTCARENOTE ---
Remains in SR-ST. No complaints thru the nite.
[2024-04-24 04:00] VITALS: BP 119/90
[2024-04-24 05:02] LABS: Blood Urea Nitrogen 20 mg/dl (9-20); Calcium 9.6 mg/dl (8.4-10.2); Carbon Dioxide 25 mmol/L (22-30); Chloride 102 mmol/L (98-107); Estimated Creatinine Clearance 83 ml/min; Glucose 93 mg/dl (70-99); Potassium 4.1 mmol/L (3.5-5.1); Sodium 137 mmol/L (135-145); eGFR > 60.00
[2024-04-24 06:00] VITALS: BMI 27.4
[2024-04-24 07:14] VITALS: BP 115/83
[2024-04-24] MEDS: LASIX 40 MG IV (09:07)
[2024-04-24] MEDS: KCL 20 MEQ PO (09:09)
[2024-04-24] MEDS: ALDACTONE 25 MG PO (09:09)
[2024-04-24] MEDS: ELIQUIS 5 MG PO (09:10)
[2024-04-24] MEDS: TOPROL XL 25 MG PO ×2 (09:10→11:46)
[2024-04-24] MEDS: ENTRESTO 24 MG/26 MG 1 TAB PO (09:10)
[2024-04-24] MEDS: FARXIGA 10 MG PO (09:11)
[2024-04-24] MEDS: MAGNESIUM OXIDE 500 MG PO (09:11)
[2024-04-24] MEDS: THIAMINE INJECTION 200 MG IV (09:11)
[2024-04-24] MEDS: FOLVITE 1 MG PO (09:11)
--- NOTE | 2024-04-24 10:25 | PTCARENOTE ---
received patient this am ambulating in room, voices no complaints. monitor shows NSR with a first degree. VSS. right radial is KAROLINE, distal pulse palpable. patient is hoping to be discharged today.
--- NOTE | 2024-04-24 11:22 | W.PN.CD ---
Today's Communication / Plan
-
Increase metop to 50 daily
Extra IV lasix this afternoon prior to d/c
Oral lasix 40 mg tomorrow, PRN for weight gain thereafter
We will f/u as outpatient
Impression / Plan
-
AFib with RVR: type/onset unknown
-s/p DCCV, started metop 25 XL likely increase to 50 XL tomorrow
-he thinks he has sleep apnea, but has never been tested. Reviewed untreated sleep apnea in AFIB- recommend OP eval.
-we discussed ETOH intake- safest and best practice is no ETOH, but if does not quit should limit to 1 drink- reviewed with patient
-TSH normal
-TTE below, cath no significant CAD
CHF, acute, type unknown:
-GDMT: dapagliflozin 10mg, Metop 50 XL, Entresto low dose, Spironolactone 25 mg
- Lasix IV bid today, Lasix 40 po tomorrow and then PRN at home
HTN:
- GDMT as above
HLD:
-on statin
Subjective: Feels great no new complaints wants to leave
TTE: CONCLUSIONS
Normal LV size with mild to moderately reduced systolic function.
LVEF is approximately 35% by visual estimation.
Global diffuse hypokinesis.
Normal right ventricular size and function.
Mild to moderate mitral regurgitation.
Mild to moderate tricuspid regurgitation.
Estimated pulmonary artery pressure of 30-35 mmHg.
Compared to prior from January 03, 2016, overall LVEF is now mild to moderately
reduced and estimated at 35%, previously EF was normal at 55 to 60%, and there
is now new mild to moderate MR and mild to moderate TR, previously no
significant valve disease.
Physical Exam
Vital Signs/Labs
Vital Signs
Temp Pulse Resp BP Pulse Ox
97.4 F 104 18 115/83 99
04/24/24 07:12 04/24/24 09:10 04/24/24 07:12 04/24/24 09:10 04/24/24 07:12
04/23/24 04/24/24 04/25/24
06:59 06:59 06:59
Actual Weight 207 lb 7.28 oz 196 lb 10.437 oz
04/23/24 04:32
04/24/24 04:16
Magnesium 2.0 mg/dl (1.6-2.3) 04/23/24 04:32
Triglycerides 92 mg/dl (10-149) 04/22/24 03:41
LDL Cholesterol, Calc 70 mg/dl 04/22/24 03:41
VLDL Cholesterol, Calc 18 mg/dl (0-30) 04/22/24 03:41
HDL Cholesterol 51 mg/dl 04/22/24 03:41
04/20/24
17:42
Tdr-H-Rgqqueebpln Pept 4210
Physical Exam
Constitutional: No acute distress
EENT: Anicteric
Cardiovascular: Rhythm & rate is regular and Pedal edema present (trace)
Respiratory: Respiratory effort normal and Lungs clear to auscul.
GI: Soft
Neuro/Psych: AO x 3
Data Reviewed
-
Date of Service: April 24, 2024
EKG: Tracing Personally Visualized and interpreted (sr)
Echo: Report Reviewed by me
Labs: Labs Reviewed by me
[2024-04-24 11:43] VITALS: BP 118/89
--- NOTE | 2024-04-24 14:27 | W.DCSUMMARY ---
Discharge Summary
Discharge Data
Date of Admission: 04/20/24
Date of Discharge: 04/24/24
-
Pending Results: No
Hospital Course
53 years old male presented with shortness of breath and increasing lower extremity edema with weight gain. He was found to have irregular palpitation by his primary care doctor was sent over to the hospital. Patient had history of hypertension
and hyperlipidemia. He was found to have atrial fibrillation with rapid ventricular response. He was also diagnosed with acute onset systolic heart failure. Patient was evaluated by sole cutter. He had echocardiogram that showed depressed left
ventricular ejection fraction. He underwent cardiac catheterization on 04/22/24 and showed elevated left ventricular end-diastolic pressure with severe global hypokinesis, left ventricular ejection fraction 21%, mild to moderate mitral regurgitation
with no significant coronary artery disease. Patient was diagnosed with nonischemic cardiomyopathy. Possibility of tachycardia induced cardiomyopathy versus alcohol induced was considered. Patient was counseled to quit alcohol intake and he
verbalized understanding. Patient underwent cardioversion with successful conversion to sinus rhythm on 04/23. No complications reported. Patient was anticoagulated with Eliquis. He was started on goal-directed medical therapy for heart failure.
Patient was counseled regarding potential side effects of each medications and he verbalized understanding. He was given a prescription to do follow-up blood work. He was also specifically counseled regarding potential side effects of Eliquis
specifically bleeding tendency and fall risk. Patient remained hemodynamically stable. He tolerated medications well with no dizziness or hypotension. He was discharged home in a stable condition. Patient was concerned about anxiety and
controlling his symptoms at home. He was counseled regarding safe use of low-dose lorazepam and advised to follow with his primary care doctor regarding potential benefit from antidepressant/antianxiety medications.
Physical Exam
General: Well Developed, Well Nourished and No Apparent Distress
HEENT: Normocephalic, Moist mucous membranes and Atraumatic
Respiratory: Clear
Cardiac: S1/S2, regular Rhythm.
GI: Soft, Non Tender, Non Distended and Normal Bowel Sounds; No Organomegaly
Rectal: No rectal bleeding
Musculoskeletal: No Clubbing, No Cyanosis and No Edema
Skin: No Rash
Neuro: Nonfocal/grossly intact
Psych: calm.
Total discharge time spent to see the patient on the floor, examine the patient, review data and lab results, discuss discharge plan with patient, sole cutter, nursing staff around 65 minutes
Discharge Plan
-
Patient Disposition: Home (Routine Discharge)
Discharge Diagnosis/Procedures: Atrial fibrillation with rapid ventricular response
Acute systolic heart failure
Hypertension
Hyperlipidemia
You were seen by sole cutter. You had cardiac catheterization and cardioversion. You are in sinus rhythm now. [employer] recommended following medications as part of goal-directed medical therapy.
Most common side effects are as follows:
-Lasix, diuretic, potential side effect include hypotension, hypokalemia, hyponatremia, kidney injury
-Entresto, blood pressure medication, potential side effects include hyperkalemia, kidney injury, allergy
-Spironolactone(Aldactone), diuretic, potential side effect include hyperkalemia, hypotension, gynecomastia
-Toprol, beta-brett, potential side effect include fatigue, hypotension, bradycardia
-Farxiga: Potential side effect include low blood glucose, nausea, kidney injury
-Eliquis, blood thinner, potential side effect bleeding. Avoid falls. Call ambulance if you fall and hit your head.
Continue take your medications and monitor blood pressure. Optimal blood pressure less than 140/90. Contact your sole cutter if you start to have dizziness, palpitations or hypotension.
Avoid alcohol intake. Use Ativan for anxiety/panic attack. Ativan is benzodiazepine, sedative and controlled substance. Follow instructions to use safely. Do not take before driving or operating a machine. Discuss with your primary care doctor
potential need for antianxiety/antidepressant medication if you start to experience symptoms.
Make an appointment with your primary care doctor within 1 to 2 weeks. Make appointment with sole cutter. Do blood work to monitor your blood counts, kidney function, potassium and liver function test.
Diet: Low Cholesterol and Low Sodium
Blood Work: CBC&BMP&LFT&Mg
Referrals:
Nilo Sagastume DO [Family Provider] - in one to two weeks
Bakari Zhang MD [Active] - in one to two weeks
Prescriptions:
New
spironolactone 25 mg Tablet
25 mg PO DAILY Qty: 30 0RF
metoprolol succinate 25 mg Tablet Extended Release 24 Hr
50 mg PO DAILY Qty: 30 0RF
Eliquis 5 mg Tablet
5 mg PO BID Qty: 60 0RF
dapagliflozin propanediol 10 mg Tablet
10 mg PO DAILY Qty: 30 0RF
Entresto 24-26 mg Tablet
1 tab PO BID Qty: 60 0RF
furosemide [Lasix] 40 mg tablet
40 mg PO DAILY Qty: 30 0RF
lorazepam [Ativan] 0.5 mg tablet
0.5 mg PO DAILY PRN (Reason: Anxiety) Qty: 20 0RF
thiamine HCl (vitamin B1) 100 mg tablet
100 mg PO DAILY Qty: 30 0RF
Continued
simvastatin 40 mg tablet
40 mg PO DAILY
Discontinued
aspirin 81 mg Tablet,Delayed Release (Dr/Ec)
81 mg PO DAILY
ramipril 5 mg capsule
5 mg PO DAILY
Discharge Orders:
Discharge Patient (As Directed); Ordered 04/24/24
Ordered By: Maximilian Brantley
Discharge Date and Time
Print Language: BURUNDIAN
--- NOTE | 2024-04-24 15:05 | PTCARENOTE ---
D/C instructions given to patient, verbalizes understanding. INT D/C'd m telemetry d/C'd, personal belongings packed and sent home with patient. D/C to home via wc accompanied by staff.
== END 2024-04-24 16:55 | disposition home or self-care (01) | DRG 286 ==
LOC: IVU 21:09
PROVIDERS: Clinical Nurse Specialist Family Health; Internal Medicine Cardiovascular Disease; Nurse Practitioner; Nurse Practitioner Adult Health; Nurse Practitioner Family; ADMITTING PHYSICIAN Hospitalist; ATTENDING PHYSICIAN Internal Medicine; EMERGENCY PHYSICIAN Emergency Medicine; FAMILY PHYSICIAN Internal Medicine; OTHER PHYSICIAN Internal Medicine Cardiovascular Disease
PROC: 4A023N7 Measurement of Cardiac Sampling and Pressure, Left Heart, Percutaneous Approach (ICD-10-PCS; 2024-04-22)
PROC: B2151ZZ Fluoroscopy of Left Heart using Low Osmolar Contrast (ICD-10-PCS; 2024-04-22)
PROC: B2111ZZ Fluoroscopy of Multiple Coronary Arteries using Low Osmolar Contrast (ICD-10-PCS; 2024-04-22)
PROC: B24BZZ4 Ultrasonography of Heart with Aorta, Transesophageal (ICD-10-PCS; 2024-04-23)
PROC: 5A2204Z Restoration of Cardiac Rhythm, Single (ICD-10-PCS; 2024-04-23)
DX: I48.91 Unspecified atrial fibrillation (principal); I50.21 Acute systolic (congestive) heart failure; I11.0 Hypertensive heart disease with heart failure; E78.00 Pure hypercholesterolemia, unspecified; R74.01 Elevation of levels of liver transaminase levels; E87.6 Hypokalemia; I25.10 Atherosclerotic heart disease of native coronary artery without angina pectoris; I08.1 Rheumatic disorders of both mitral and tricuspid valves; F10.90 Alcohol use, unspecified, uncomplicated; E83.42 Hypomagnesemia; Z82.49 Family history of ischemic heart disease and other diseases of the circulatory system; Z88.1 Allergy status to other antibiotic agents; Z88.0 Allergy status to penicillin; Z79.82 Long term (current) use of aspirin; Z63.5 Disruption of family by separation and divorce
CPT/HCPCS: 71046; 80048; 80053; 80061; 82077; 83036; 83735; 83880; 84100; 84443; 84484; 85025; 85027; 92960; 93005; 93306; 93312; 93320; 93325; 93458; 96361; 96374; 96375; 99285; C1894; Q9967